=== PATIENT | male | born 1965 | race Caucasian/White ===

== ENCOUNTER 2022-05-14 13:20 | Outpatient (CLI) | payer OTHER, SELFPAY ==
--- NOTE | ~2022-05-14 | XR_ITS ---
EXAMINATION: XR hand RT 2V INDICATION: Right metacarpal fracture, known TECHNIQUE: Two views of the right hand are obtained. COMPARISON: None available FINDINGS: There is a transverse fracture in the distal neck of the fifth metacarpal. There are approx imately 25 degrees of palmar angulation at the fracture site. There is minimal calcified callus surro unding the fracture. No additional fracture is identified. The joint spaces are normal. There is a letty cent lesion in the base of the fourth middle phalanx which abuts the proximal interphalangeal joint. This appears to have a thin sclerotic margin with mild expansion in the medial cortex of the finger. IMPRESSION: 1. Transverse fracture in the distal neck of the fifth metacarpal with routine healing. 2. Indeterminant lytic lesion in the fourth middle phalanx with findings suggestive of a benign lesio n however, dedicated radiographs are recommended. Reviewed, dictated and finalized at location [facility] [employer] IMPRESSION: 1. Transverse fracture in the distal neck of the fifth metacarpal with routine healing. 2. Indeterminant lytic lesion in the fourth middle phalanx with findings sugges tive of a benign lesion however, dedicated radiographs are recommended.
== END 2022-05-14 13:21 | disposition home or self-care (01) ==
PROVIDERS: Visit Provider Nurse Practitioner Family
DX: S62.336A Displaced fracture of neck of fifth metacarpal bone, right hand, initial encounter for closed fracture (principal); X58.XXXA Exposure to other specified factors, initial encounter
CPT/HCPCS: 73120